=== PATIENT | female | born 1965 | race Two or more races ===

== ENCOUNTER 2024-05-15 13:39 | Outpatient (OUT) | payer OTHER, SELFPAY ==
--- NOTE | 2024-05-15 | XR_ITS ---
The [address] [address] Patient Name: JENNIFER BLACKWELL MRN: [id number] date: 1965 Sex: F Assigned Patient Location: [facility] Current Patient Location: [facility] Accession/Order Number: [id number] Exam Date: 05/15/2024 13:54 Report Date: 05/15/2024 14:24 At the request of: TESSIE MARIN Procedure: XR chest 2V EXAMINATION: XR chest 2V HISTORY: Positive TB test COMPARISON: No relevant comparison available. FINDINGS: LUNGS: No significant pulmonary parenchymal abnormalities. VASCULATURE: No increased pulmonary vasculature. PLEURA: No pneumothorax, effusion, or pleural thickening. CARDIAC: No cardiomegaly or cardiac silhouette abnormality. MEDIASTINUM: No visible mass or adenopathy. BONES: No fracture or visible bone lesion. OTHER: Negative. XR/XR chest 2V IMPRESSION: 1. No pulmonary infiltrates or suspicious findings. Electronically authenticated by: ROLDAN VERA Date: 05/15/2024 14:24
== END 2024-05-15 13:40 | disposition home or self-care (01) ==
PROVIDERS: PCP Nurse Practitioner Primary Care; Visit Provider Nurse Practitioner Primary Care
DX: R76.11 Nonspecific reaction to tuberculin skin test without active tuberculosis (principal)
CPT/HCPCS: 71046